=== PATIENT | female | born 1980 | race American Indian/Alaskan Native ===

== ENCOUNTER 2019-05-14 12:54 | Emergency (ER) | payer OTHER, BC ==
[2019-05-14 13:35] VITALS: BP 138/87
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
[2019-05-14] MEDS ORDERED: DELTASONE PO ONE (15:06)
[2019-05-14] MEDS ORDERED: FLEXERIL PO ONE (15:06)
[2019-05-14] MEDS ORDERED: TORADOL IM ONE (15:06)
== END 2019-05-14 15:56 | disposition home or self-care (01) ==
LOC: ED 12:54
DX: M25.511 Pain in right shoulder (principal); M79.10 Myalgia, unspecified site; I10 Essential (primary) hypertension; E11.9 Type 2 diabetes mellitus without complications; V89.2XXA Person injured in unspecified motor-vehicle accident, traffic, initial encounter; Y93.89 Activity, other specified; Y92.488 Other paved roadways as the place of occurrence of the external cause; Y99.8 Other external cause status
CPT/HCPCS: 96372; 99282; J1885; J7512